=== PATIENT | female | born 1985 | race Caucasian/White ===

== ENCOUNTER 2022-02-18 17:46 | Observation (INO) | payer MEDICAID ==
[~2022-02-18] VITALS: Ht 160 cm; Wt 78.0 kg
[2022-02-18] MEDS ORDERED: PRETAB PO (18:27)
[2022-02-18 18:28] VITALS: BP 106/59
== END 2022-02-18 19:30 | disposition home or self-care (01) ==
LOC: MLD 17:46
PROVIDERS: ADMIT Obstetrics & Gynecology; ATTEND Obstetrics & Gynecology
DX: O42.92 Full-term premature rupture of membranes, unspecified as to length of time between rupture and onset of labor (principal); Z3A.39 39 weeks gestation of pregnancy
CPT/HCPCS: 76815; G0378; Q0092